=== PATIENT | male | born 1945 | race Caucasian/White ===

== ENCOUNTER → 2017-07-22 | Day surgery (SDC) | payer MEDICARE ==
[2017-07-17 11:56] VITALS: BMI 38.7
[~2017-07-22] MED LIST: LACTATED RINGERS 1,000 ML IV SCH; LIDOCAINE 1% INJ 10MG/ML (20 ML MDV) ONE; NITROGLYCERIN OINT 1 INCH/GM PACKET TOPICAL ONE; NITROGLYCERIN OINT 1 INCH/GM PACKET TOPICAL STA; NITROGLYCERIN SL TABS 0.4 MG TAB SUBLINGUAL ONE; NITROGLYCERIN SL TABS 0.4 MG TAB SUBLINGUAL STA; PROPOFOL 10 MG/ML 20 ML VIAL IV ONE; SODIUM CHLORIDE 0.9% 1,000 ML IV SCH
[2017-07-22 09:10] VITALS: RESP 16
--- NOTE | 2017-07-22 09:15 | CE ---
CARDIAC ELECTROPHYSIOLOGY REPORT DATE OF SERVICE: 07/22/2017. PROCEDURE: Electrical cardioversion. PERFORMED BY: Dr. Neil Guo. CLINICAL INFORMATION: Mr. Naga Cole is a 71-year-old gentleman with history of CAD, obesity, hypertension, hyperlipidemia. He is status post prior aortocoronary bypass surgery. He has history of paroxysmal atrial fibrillation, has been on Eliquis. He also has underlying sick sinus syndrome. He came into the office recently with symptoms of shortness of breath, was found to be in atrial fibrillation with moderate ventricular rate. Rate control was fair. He was advised electrical cardioversion. He was adequately anticoagulated. Risks, benefits, options, rationale were explained to the patient. He was brought in for the procedure electively. PROCEDURE NOTE: Under the influence of ultra short-acting intravenous anesthetic agent with the attendance of the anesthesiologist, a single 250 joule shock was delivered to the chest with anterior and posterior patches. Patient converted to sinus rhythm. He remained hemodynamically stable and neurologically intact. This was a successful cardioversion. He will be discharged later on today after he is up and about and I will see him in the office in 2 weeks. MMODL / IJN: [id number] /
[2017-07-22 13:38] VITALS: TEMP 97.8
[2017-07-22 13:39] VITALS: BP 135/82; PULSE 76
== END ==
LOC: CATHCVL 06:57
PROVIDERS: ATTEND Internal Medicine Interventional Cardiology
DX: I48.0 Paroxysmal atrial fibrillation (principal); Z79.01 Long term (current) use of anticoagulants; I49.5 Sick sinus syndrome; I25.10 Atherosclerotic heart disease of native coronary artery without angina pectoris; I10 Essential (primary) hypertension; I25.2 Old myocardial infarction; Z95.1 Presence of aortocoronary bypass graft; E66.01 Morbid (severe) obesity due to excess calories; Z68.38 Body mass index [BMI] 38.0-38.9, adult; E78.5 Hyperlipidemia, unspecified; E78.00 Pure hypercholesterolemia, unspecified; Z82.49 Family history of ischemic heart disease and other diseases of the circulatory system; Z79.899 Other long term (current) drug therapy
CPT/HCPCS: 92960; J2001; J2704; 93005

== ENCOUNTER → 2018-12-01 | Outpatient (CLI) | payer MEDICARE ==
--- NOTE | 2018-12-01 11:32 | CT ---
EXAMINATION TYPE: CT angio thor/abd pel aorta DATE OF EXAM: 12/01/2018 COMPARISON: None HISTORY: 73-year-old male Chest pains TECHNIQUE: Contiguous axial scanning of the chest, abdomen, and pelvis performed with IV Contrast, pa tient injected with 80 mL of Isovue 370. Coronal/sagittal MIP reconstructions performed. 3-D reconstr uctions generated on a dedicated independent workstation. CT DLP: 1714.9 mGycm Automated exposure control for dose reduction was used. FINDINGS: Chest: Median sternotomy wires are present with post-CABG clips in the mediastinum. Heart upper limits of normal in size without pericardial effusion. There is mitral annular calcificat ions. Variant direct takeoff of the left vertebral artery directly from the aortic arch and additional aber rant right subclavian artery origin which takes a retroesophageal course. Thoracic aorta is normal caliber but mildly tortuous. No evidence for aortic dissection. No large central pulmonary embolus. No thoracic lymphadenopathy. Strandy atelectasis at the left base. No consolidation or pleural effusion. ABDOMEN: Early arterial phase imaging of the liver shows a calcified granuloma in the left lobe. Layering gravel/tiny calculi in the gallbladder. No abnormal gallbladder distention. Adrenal glands, spleen, and pancreas show no gross abnormality by early arterial phase imaging. Nonobstructive 3 mm right renal calculus. 4 mm nonobstructive left renal calculus and 2 smaller 3 mm nonobstructive left renal calculi. There seems to be a duplex left renal collecting system. 2 ureters are visualized down into the pelvi s. Difficult to determine if these come together prior to the bladder. No dilated small bowel, free fluid, or free air. No mesenteric or retroperitoneal lymphadenopathy. Scattered mild stool. No pericolonic inflammatory change. Mild atherosclerotic calcifications throughout the abdominal aorta without aneurysm. Retroaortic left renal vein. PELVIS: Mild to moderate atherosclerotic calcifications in the common and internal iliac arteries. Ectatic le ft common iliac artery at 1.5 cm. Moderate wall thickening of the distal rectum may be due to nondist ention. Pelvic phleboliths. No abnormal fluid collection seen in the pelvis. BONES: Bilateral total hip arthroplasties cast extensive metal hardware artifact limiting visualization the pelvis. Degenerative changes throughout the lumbar spine. DISH within the thoracic spine. IMPRESSION: 1. 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 2. MILD ATHEROSCLEROTIC CHANGES WITHIN THE ABDOMINAL AORTA WITHOUT AAA. MILD TO MODERATE CALCIFICATIO NS COMMON AND INTERNAL ILIAC ARTERIES WITH ECTATIC LEFT COMMON ILIAC ARTERY AT 1.5 CM. 3. MODERATE CIRCUMFERENTIAL WALL THICKENING OF THE DISTAL RECTUM MAY BE DUE TO NONDISTENTION OR COLIT IS. CORRELATE WITH DIRECT VISUALIZATION IF ROUTINE SCREENING COLONOSCOPY IS NOT BEEN PERFORMED. 4. CHOLELITHIASIS, BILATERAL NONOBSTRUCTIVE RENAL CALCULI, AND DUPLEX LEFT RENAL COLLECTING SYSTEM.
== END | disposition home or self-care (01) ==
LOC: RADCTMAIN 08:08
PROVIDERS: ATTEND Internal Medicine Interventional Cardiology
DX: I70.0 Atherosclerosis of aorta (principal); K80.20 Calculus of gallbladder without cholecystitis without obstruction; N20.0 Calculus of kidney; K62.89 Other specified diseases of anus and rectum; R07.9 Chest pain, unspecified
CPT/HCPCS: 82565; 84520; 71275; 36415; 74174; Q9967

== ENCOUNTER → 2018-12-17 | Outpatient (CLI) | payer MEDICARE ==
[2018-12-17 10:32] LABS: HCT 44.8 % (39.0-53.0); HGB 14.6 gm/dL (13.0-17.5); MCH 29.2 pg (25.0-35.0); MCHC 32.5 g/dL (31.0-37.0); MCV 89.9 fL (80.0-100.0); Mean Platelet Volume 8.1; Platelet Count 204 k/uL (150-450); RBC 4.99 m/uL (4.30-5.90); RDW 15.6 % (11.5-15.5); WBC 9.6 k/uL (3.8-10.6)
[2018-12-17 16:13] LABS: African American GFR (CKD) 62.3 (60.0-200.0); Anion Gap 9.4 mmol/L (4.00-12.00); BUN/Creat Ratio 22.31 Ratio (12.00-20.00); Calcium 9.2 mg/dL (8.7-10.3); Carbon Dioxide 25.6 mmol/L (21.6-31.8); Potassium 4.6 mmol/L (3.5-5.5)
== END | disposition home or self-care (01) ==
LOC: LABWHC1 09:45
PROVIDERS: ATTEND Internal Medicine Interventional Cardiology
DX: I25.10 Atherosclerotic heart disease of native coronary artery without angina pectoris (principal)
CPT/HCPCS: 36415; 80048; 85027

== ENCOUNTER → 2020-07-02 | Outpatient (CLI) | payer MEDICARE ==
[2020-07-03 04:32] LABS: T4, Free (Free Thyroxine) 1.3 ng/dL (0.80-1.80)
== END | disposition home or self-care (01) ==
LOC: LABWHC1 15:41
PROVIDERS: ATTEND Internal Medicine Interventional Cardiology
DX: E03.4 Atrophy of thyroid (acquired) (principal); R00.1 Bradycardia, unspecified
CPT/HCPCS: 36415; 84439; 84443